=== PATIENT | female | born 1940 | race Caucasian/White ===

== ENCOUNTER 2023-07-29 08:02 | Emergency (ER) | payer OTHER, SELFPAY ==
[2023-07-29 08:10] VITALS: BP 169/92
[2023-07-29 08:25] LABS: % Eosinophils 0.9 % (0-6); % Immature Granulocytes 0.6 % (0-0.5); % Neutrophils 79.5 % (42.2-75.2); Absolute Basophils 0.1 10^3/uL (0-0.2); Absolute Eosinophils 0.1 10^3/uL (0-0.7); Absolute Immature Granulocytes 0.1 10^3/uL (0-0.05); Absolute Lymphocytes 0.8 10^3/uL (1.2-3.4); Absolute Monocytes 0.7 10^3/uL (0.1-0.6); Absolute Neutrophils 6.4 10^3/uL (1.4-6.5); Hematocrit 44.1 % (37.0-47.0); Hemoglobin 15.2 g/dL (12.0-16.0); Mean Corp Hgb Conc. 34.5 g/dL (33.0-37.0); Mean Corpuscular Hgb 29.1 pg (27.0-31.0); Mean Corpuscular Volume 84.5 fL (81.0-99.0); Mean Platelet Volume 9.7 fL (7.4-10.4); Nucleated Red Blood Cells % 0 %; Platelet Count 263 10^3/uL (130-400); Red Blood Cell Count 5.22 10^6/uL (4.20-5.40); Red Cell Dist. Width 14.6 % (11.5-14.5); White Blood Cell Count 8.1 10^3/uL (4.8-10.8)
[2023-07-29 08:38] LABS: ALT (SGPT) 21 U/L (0-35); AST (SGOT) 33 U/L (14-36); Albumin 4.2 g/dl (3.5-5.0); Alkaline Phosphatase 90 U/L (38-126); Blood Urea Nitrogen 11 mg/dl (7-17); Calcium 9.5 mg/dl (8.4-10.2); Carbon Dioxide 26 mmol/L (22-30); Chloride 101 mmol/L (98-107); Glucose 104 mg/dl (70-99); Lipase 100 U/L (23-300); Potassium 4.3 mmol/L (3.5-5.1); Sodium 134 mmol/L (135-145); Total Bilirubin 0.6 mg/dl (0.2-1.3); Total Protein 6.9 g/dl (6.3-8.2); eGFR > 60.00
[2023-07-29 10:00] LABS: Urine Albumin Negative (Neg - Trace); Urine Bilirubin Negative (Negative); Urine Character Clear (Clear); Urine Color Yellow; Urine Glucose Negative (Negative); Urine Ketone Negative (Negative); Urine Leukocyte Trace (Negative); Urine Nitrite Negative (Negative); Urine Occult Blood Negative (Negative); Urine Urobilinogen Negative (Neg - 1+)
--- NOTE | 2023-07-29 10:11 | ED.GENMED ---
History of Present Illness
General
Chief Complaint: Abdominal Pain
Source: patient
Exam Limitations: none
Time Seen by Provider: 07/29/23 10:10
Nursing documentation reviewed up to this point in time: agreed with
Travel History
Have you had any contact with someone who has COVID-19?: No
Do you have any symptoms of coronavirus? Fever > 100 degrees, chills, cough, shortness of breath, sore throat, loss of taste or smell, muscle aches, or headache?: No
History of Present Illness
History of Present Illness:
Patient is a 2-year-old female who presents to the ER for evaluation. Patient reports since she has had pain to the right side of her back that radiates to her right front under her right rib area. She denies any injury. Denies any fever
or chills. Denies any shortness of breath or chest pain. She reports this does not feel like abdominal pain. She denies any associated nausea vomiting diarrhea. She denies any decrease or change of appetite. Food does not make this worse.
noticed rash today to back/front at site of pain.
Past History
Past History
ED Past Medical History: HTN
ED Past Surgical History: Cholecystectomy and Other (Lumpectomy)
Social History
Tobacco: Former smoker
Alcohol: None
Drug: None
Review of Systems
Review of Systems
Allergies reviewed?: Yes
All Other Systems: ROS reviewed and negative except as documented in HPI and ROS
Constitutional: Reports no symptoms; Denies fever, fatigue or chills
Respiratory: Reports other (pain under right rib region ); Denies trouble breathing
Cardiac: Reports no symptoms
ABD/GI: Denies abdominal pain, nausea, vomiting or diarrhea
: Reports no symptoms
Musculoskeletal: Reports back pain (pain to right side of back )
Skin: Reports rash (rash to front/back at site of pain )
Neurological: Denies dizzy, headache, weakness or numbness
Hematologic/Lymphatic: Reports no symptoms
Psychiatric: Reports no symptoms
Phy Exam
General Physical Exam
General Presentation: no apparent distress
General age: appears stated age
General Skin: warm and dry
General Habitus: elderly
General Mental: alert
General Hydration: appears well hydrated
Cardiovascular Exam
Cardiovascular Exam: regular rate/rhythm, no murmur and normal peripheral pulses
Pulmonary Exam
Pulmonary Exam: lungs clear and no respiratory distress
Gastrointestinal Exam
Gastrointestinal Exam: normal bowel sounds, non tender and soft
Neurological Exam
Neurological Exam: alert and oriented x3
[place] Coma Scale
Eye Opening: Spontaneous
Verbal Response: Oriented
Motor Response: Obeys Commands
GCS Total Score: 15
Musculoskeletal Exam
Musculoskeletal Exam: full ROM
Skin Exam
Skin Exam: normal color, warm/dry and other (+ rash (erythema slightly raised/small vesicle )under right anterior rib area and right back along inferior right rib )
Psychiatric Exam
Psychiatric Exam: normal mood/affect
Course
Orders/Labs/Results
Orders:
Orders
07/29/23 08:17
Complete Blood Count/With Diff Urgent
Comprehensive Metabolic Panel Urgent
Lipase Urgent
07/29/23 09:30
Urinalysis Reflex To Culture Urgent
Date Specimen was Collected: 07/29/23
Time Specimen was Collected: 08:13
Urine Microscopic Reflex Cult Urgent
Abnormal Lab Results
07/29/23 07/29/23
08:17 09:30
RDW 14.6 H %
(11.5-14.5)
Abs Immat Gran (auto) 0.1 H 10^3/uL
(0-0.05)
Absolute Lymphs (auto) 0.8 L 10^3/uL
(1.2-3.4)
Absolute Monos (auto) 0.7 H 10^3/uL
(0.1-0.6)
Immature Gran % 0.6 H %
(0-0.5)
Neutrophils % 79.5 H %
(42.2-75.2)
Lymphocytes % 10.0 L %
(20.5-51.1)
Sodium 134 L mmol/L
(135-145)
Glucose 104 H mg/dl
(70-99)
Leukocyte Esterase Rfl Trace A
(Negative)
07/29/23 08:17
07/29/23 08:17
Vital Signs
Initial and Last Documented VS:
Initial Vital Signs
Temp Pulse Resp BP Pulse Ox
98.0 F 69 16 169/92 96
07/29/23 08:10 07/29/23 08:10 07/29/23 08:10 07/29/23 08:10 07/29/23 08:10
Last Documented Vital Signs
Temp Pulse Resp BP Pulse Ox
98.0 F 69 16 169/92 96
07/29/23 08:10 07/29/23 08:10 07/29/23 08:10 07/29/23 08:10 07/29/23 08:10
MDM/Problems Addressed
Differential Diagnosis Includes:
Not limited to muscle pain, shingles
MDM/Problems Addressed:
Symptoms are consistent with shingles. Patient started with discomfort on noticed rash today. Patient is afebrile nontoxic. Abdomen soft nontender normal renal function normal white count. despite rash starting greater than 72
hours patient is greater than 65 years of age will benefit from antiviral treatment. Will start valacyclovir 1000 mg p.o. 3 times a day. In addition we will start gabapentin for discomfort. I did review with patient this is very sedating. She
will be given instructions to start 100 mg every hours as needed but may increase slowly to 300 mg every as needed with outpatient follow-up with family doctor.
*Pulse Oximetry
Patient hypoxic: no
*Critical Care Note
Total Time (30-74mins, 75-104mins- exclusive of procedures): Not Applicable
ED Attending Note
-
Portions of this chart may have been created with voice recognition software.� Occasional wrong word or��sound alike� substitutions may have occurred due to the inherent limitations of voice recognition software.
Discharge Plan
Departure
Patient Disposition: Home (Routine Discharge)
Date of Disposition: 07/29/23
Time of Disposition: 10:32
Patient with high blood pressure during this ER visit?: Yes
Condition: Fair
Covid-19: Not Applicable
Discharge Problem:
Herpes zoster
Instructions: Shingles (DC), BLOOD PRESSURE
Prescriptions:
New
valacyclovir 1 gram tablet
1,000 mg PO TID Qty: 30 0RF
gabapentin 100 mg capsule
100 mg PO Q8H PRN (Reason: pain) Qty: 30 0RF
Rx Instructions:
100 mg PO Q8 hrs PRN may increase to 300mg PO Q8 hrs as needed for Shingles pain
No Action
lisinopril-hydrochlorothiazide 1 EACH tablet
1 ea PO BID
vitamin E 400 UNIT capsule
400 unit PO DAILY
metoprolol tartrate 25 MG tablet
12.5 mg PO BID
FA-B cmp,C-rice bran-edilberto hips [B-complex with vitamin C] 1 EACH tablet
1 tab PO DAILY
selenium 200 MCG capsule
600 mcg PO DAILY
red yeast rice 600 MG tablet
1,200 mg PO DAILY
Co Q-10
2 tab PO DAILY
Patient Comments:
co q 10 -plus strength
amlodipine [Norvasc] 5 MG tablet
5 mg PO DAILY
calcium carbonate [calcium] 500 MG tablet
500 mg PO DAILY
vitamins A,C,T-kyhs-kthsgi [PreserVision AREDS] 1 CAP capsule
2 cap PO DAILY
Referrals:
Cary Farrar MD [Family Provider] -
Activity Restrictions/Additional Instructions:
As discussed your symptoms are consistent with shingles. You have been prescribed 2 medications. 1 medication is an antiviral medication (valacyclovir) take as directed for the next 7-10 days.
the second medication is Gabapentin for shingles pain. This medication will cause drowsiness. You may start by taking 100 mg every 8 hours as needed for discomfort and may increase to 300 mg every 8 hours as needed. Please follow-up with your
family doctor in the next 2 days for reevaluation of symptoms and return if any worsening of symptoms
Interventions
Interventions:
*ED COVID-19 Vaccine History Last Done: 07/29/23 08:10
Discharge Date and Time
Print Language: GHANAIAN
[2023-07-29 10:24] LABS: Urine Bacteria Few (Negative); Urine Red Blood Cell 0-2 /HPF (0-2); Urine Squamous Cell 0-2 /LPF (Few); Urine White Cell 0-2 /HPF (0-5)
== END 2023-07-29 10:47 | disposition home or self-care (01) ==
LOC: EMR 08:02
PROVIDERS: Emergency Medicine; EMERGENCY PHYSICIAN Emergency Medicine; FAMILY PHYSICIAN Family Medicine
DX: B02.9 Zoster without complications (principal); I10 Essential (primary) hypertension; Z87.891 Personal history of nicotine dependence
CPT/HCPCS: 99283; 80053; 81003; 81015; 83690; 85025

== ENCOUNTER → 2023-08-08 09:39 | Outpatient (REF) | payer OTHER, SELFPAY ==
[2023-08-08 12:29] LABS: ALT (SGPT) 20 U/L (0-35); AST (SGOT) 27 U/L (14-36); Albumin 4.1 g/dl (3.5-5.0); Alkaline Phosphatase 90 U/L (38-126); Blood Urea Nitrogen 14 mg/dl (7-17); Calcium 9.4 mg/dl (8.4-10.2); Carbon Dioxide 27 mmol/L (22-30); Chloride 96 mmol/L (98-107); Glucose 92 mg/dl (70-99); HDL Cholesterol 80 mg/dl; LDL Cholesterol, Calculated 120 mg/dl; Potassium 3.9 mmol/L (3.5-5.1); Sodium 134 mmol/L (135-145); Total Bilirubin 0.7 mg/dl (0.2-1.3); Total Cholesterol 222 mg/dl (50-199); Total Protein 6.7 g/dl (6.3-8.2); Triglyceride 110 mg/dl (10-149); Very Low Density Lipoprotein 22 mg/dl (0-30); eGFR > 60.00
== END ==
LOC: REG 09:39
PROVIDERS: ATTENDING PHYSICIAN Family Medicine
DX: I10 Essential (primary) hypertension (principal); E78.00 Pure hypercholesterolemia, unspecified
CPT/HCPCS: 36415; 80053; 80061

== ENCOUNTER 2023-09-10 10:54 | Emergency (ER) | payer OTHER, SELFPAY ==
[2023-09-10 10:56] VITALS: BP 136/84
[2023-09-10 12:42] LABS: % Basophils 0.8 % (0-2); % Eosinophils 1.9 % (0-6); % Immature Granulocytes 0.9 % (0-0.5); % Lymphocytes 11.1 % (20.5-51.1); % Monocytes 11.7 % (1.7-9.3); % Neutrophils 73.6 % (42.2-75.2); Absolute Basophils 0.1 10^3/uL (0-0.2); Absolute Eosinophils 0.2 10^3/uL (0-0.7); Absolute Immature Granulocytes 0.1 10^3/uL (0-0.05); Absolute Neutrophils 6.5 10^3/uL (1.4-6.5); Hematocrit 39.1 % (37.0-47.0); Hemoglobin 13.2 g/dL (12.0-16.0); Mean Corp Hgb Conc. 33.8 g/dL (33.0-37.0); Mean Corpuscular Volume 85.9 fL (81.0-99.0); Mean Platelet Volume 8.8 fL (7.4-10.4); Nucleated Red Blood Cells % 0 %; Platelet Count 305 10^3/uL (130-400); Red Blood Cell Count 4.55 10^6/uL (4.20-5.40); Red Cell Dist. Width 15.9 % (11.5-14.5); White Blood Cell Count 8.8 10^3/uL (4.8-10.8)
[2023-09-10 13:13] LABS: ALT (SGPT) 20 U/L (0-35); AST (SGOT) 31 U/L (14-36); Albumin 3.3 g/dl (3.5-5.0); Alkaline Phosphatase 89 U/L (38-126); Blood Urea Nitrogen 9 mg/dl (7-17); Calcium 9.1 mg/dl (8.4-10.2); Carbon Dioxide 27 mmol/L (22-30); Chloride 101 mmol/L (98-107); Glucose 98 mg/dl (70-99); Lipase 126 U/L (23-300); Potassium 4.3 mmol/L (3.5-5.1); Sodium 134 mmol/L (135-145); Total Bilirubin 0.7 mg/dl (0.2-1.3); eGFR > 60.00
[2023-09-10 13:15] LABS: Troponin I 0.012 ng/ml
[2023-09-10 14:00] VITALS: BP 124/65
--- NOTE | 2023-09-10 14:03 | ED.GENMED ---
History of Present Illness
General
Chief Complaint: Musculo-Skeletal Complaint
Source: patient and spouse
Exam Limitations: none
Time Seen by Provider: 09/10/23 12:12
Nursing documentation reviewed up to this point in time: agreed with
Travel History
Have you had any contact with someone who has COVID-19?: No
Do you have any symptoms of coronavirus? Fever > 100 degrees, chills, cough, shortness of breath, sore throat, loss of taste or smell, muscle aches, or headache?: No
History of Present Illness
History of Present Illness:
83-year-old female with past medical history of hypertension presenting to the emergency department today with concerns of right-sided shoulder discomfort that radiates down to the right hip. She claims this was a similar area to where she had
shingles diagnosed 6 weeks ago she has had pain ongoing since. She saw her primary care doctor for this and they thought it was a postherpetic neuralgia started her on gabapentin. Denies any chest pain shortness of breath nausea vomiting or
additional symptoms.
Past History
Past History
ED Past Medical History: HTN
ED Past Surgical History: Cholecystectomy and Other (Lumpectomy)
Social History
Tobacco: Former smoker
Alcohol: None
Drug: None
Review of Systems
Review of Systems
Allergies reviewed?: Yes
All Other Systems: ROS reviewed and negative except as documented in HPI and ROS
Phy Exam
Physical Exam
Physical Exam:
GENERAL: Alert , in no apparent distress
EYE: pupils equal and reactive
NECK: Supple, no significant adenopathy.
ENT: o/p clr, mmm.
CARDIAC: Regular rate and rhythm .
LUNGS: Clear breath sounds bilaterally, no acute respiratory distress, no wheezes/rales/rhonchi
ABDOMEN: Soft, without focal tenderness, no r/g, no cvat
NEUROLOGICAL: Alert and oriented, no focal neuro deficits
SKIN: No rashes to the right side good range of motion and strength of the right shoulder no reproducible pain warm and dry, skin intact.
MUSCULOSKELETAL: No edema, well perfused.
PSYCH: Normal and appropriate interaction.
Course
Orders/Labs/Results
Orders:
Orders
09/10/23 12:27
Electrocardiogram (*1) Stat
Reason for Study: Other
Other Reason for Exam: chest pain
EKG- Treatment ONCE
CR Chest - 2 Views Urgent
Comment:
Reason For Exam: chest pain
09/10/23 12:33
Complete Blood Count/With Diff Urgent
Comprehensive Metabolic Panel Urgent
Lipase Urgent
Troponin I Urgent
09/10/23 14:03
Ibuprofen [Motrin] 600 mg PO NOW STA
09/10/23 14:41
Ibuprofen [Motrin] 600 mg .ROUTE .STK-MED ONE
Abnormal Lab Results
09/10/23
12:33
RDW 15.9 H %
(11.5-14.5)
Abs Immat Gran (auto) 0.1 H 10^3/uL
(0-0.05)
Absolute Lymphs (auto) 1.0 L 10^3/uL
(1.2-3.4)
Absolute Monos (auto) 1.0 H 10^3/uL
(0.1-0.6)
Immature Gran % 0.9 H %
(0-0.5)
Lymphocytes % 11.1 L %
(20.5-51.1)
Monocytes % 11.7 H %
(1.7-9.3)
Sodium 134 L mmol/L
(135-145)
Total Protein 6.0 L g/dl
(6.3-8.2)
Albumin 3.3 L g/dl
(3.5-5.0)
09/10/23 12:33
09/10/23 12:33
Vital Signs
Initial and Last Documented VS:
Initial Vital Signs
Temp Pulse Resp BP Pulse Ox
98.3 F 79 16 136/84 98
09/10/23 10:56 09/10/23 10:56 09/10/23 10:56 09/10/23 10:56 09/10/23 10:56
Last Documented Vital Signs
Temp Pulse Resp BP Pulse Ox
98.3 F 75 20 124/65 99
09/10/23 10:56 09/10/23 14:00 09/10/23 14:00 09/10/23 14:00 09/10/23 14:00
MDM/Problems Addressed
MDM/Problems Addressed:
83-year-old female presenting to the emergency department today with concerns of right shoulder discomfort rating to the right chest and right flank ongoing for the past 6 weeks after being diagnosed with shingles. On arrival here vital signs are
normal patient well-appearing normal heart and lung examination no reproducible pain throughout. No rashes troponin negative EKG normal chest x-ray without acute findings. Symptoms seem to be most consistent with ongoing postherpetic neuralgia
concerning for the same distribution as previous rash. She was advised close outpatient follow-up for management of this return precautions given.
*Critical Care Note
Total Time (30-74mins, 75-104mins- exclusive of procedures): Not Applicable
ED Attending Note
-
Portions of this chart may have been created with voice recognition software.� Occasional wrong word or��sound alike� substitutions may have occurred due to the inherent limitations of voice recognition software.
Discharge Plan
Departure
Patient Disposition: Home (Routine Discharge)
Date of Disposition: 09/10/23
Time of Disposition: 14:03
Patient with high blood pressure during this ER visit?: No
Condition: Good
Covid-19: Not Applicable
Discharge Problem:
Right shoulder pain
Instructions: Shingles
Prescriptions:
New
naproxen 500 mg tablet
500 mg PO BID Qty: 20 0RF
No Action
lisinopril-hydrochlorothiazide 1 EACH tablet
1 ea PO BID
vitamin E 400 UNIT capsule
400 unit PO DAILY
metoprolol tartrate 25 MG tablet
12.5 mg PO BID
FA-B cmp,C-rice bran-edilberto hips [B-complex with vitamin C] 1 EACH tablet
1 tab PO DAILY
selenium 200 MCG capsule
600 mcg PO DAILY
red yeast rice 600 MG tablet
1,200 mg PO DAILY
Co Q-10
2 tab PO DAILY
Patient Comments:
co q 10 -plus strength
amlodipine [Norvasc] 5 MG tablet
5 mg PO DAILY
calcium carbonate [calcium] 500 MG tablet
500 mg PO DAILY
vitamins A,C,T-rntn-qelbqw [PreserVision AREDS] 1 CAP capsule
2 cap PO DAILY
valacyclovir 1 gram tablet
1,000 mg PO TID Qty: 30 0RF
gabapentin 100 mg capsule
100 mg PO Q8H PRN (Reason: pain) Qty: 30 0RF
Rx Instructions:
100 mg PO Q8 hrs PRN may increase to 300mg PO Q8 hrs as needed for Shingles pain
Referrals:
Michael Bhatti MD [Active] - Follow up in 10 days
Cary Farrar MD [Family Provider] -
Activity Restrictions/Additional Instructions:
You can to the emergency department today with concerns of right-sided discomfort. This may be secondary to your recent shingles infection. Please take the prescribed medication and follow-up closely as an outpatient. Return to the emergency
department for any worsening, new or concerning symptoms
Interventions
Interventions:
*Risk Screen - Suicide Last Done: 09/10/23 12:30
*General Assessment Last Done: 09/10/23 12:30
*Neglect/Abuse Screening Last Done: 09/10/23 12:30
*Nursing Disposition Last Done: 09/10/23 14:52
ED-Musculoskeletal Assessment Last Done: 09/10/23 12:30
Discharge Date and Time
Discharge Date/Time: 09/10/23 14:52
Print Language: TURKISH
[2023-09-10] MEDS: MOTRIN 600 MG PO (14:43)
== END 2023-09-10 14:52 | disposition home or self-care (01) ==
LOC: EMR 10:54
PROVIDERS: Physician Assistant; EMERGENCY PHYSICIAN Emergency Medicine; FAMILY PHYSICIAN Family Medicine
DX: M25.511 Pain in right shoulder (principal); I10 Essential (primary) hypertension; Z87.891 Personal history of nicotine dependence
CPT/HCPCS: 99283; 71046; 80053; 83690; 84484; 85025; 93005

== ENCOUNTER → 2023-09-17 11:02 | Outpatient (REF) | payer OTHER, SELFPAY ==
[2023-09-17 12:02] LABS: % Basophils 1.1 % (0-2); % Eosinophils 2.5 % (0-6); % Immature Granulocytes 1.1 % (0-0.5); % Lymphocytes 13.9 % (20.5-51.1); % Monocytes 10.3 % (1.7-9.3); % Neutrophils 71.1 % (42.2-75.2); Absolute Basophils 0.1 10^3/uL (0-0.2); Absolute Eosinophils 0.2 10^3/uL (0-0.7); Absolute Immature Granulocytes 0.1 10^3/uL (0-0.05); Absolute Lymphocytes 1.1 10^3/uL (1.2-3.4); Absolute Monocytes 0.8 10^3/uL (0.1-0.6); Absolute Neutrophils 5.7 10^3/uL (1.4-6.5); Hematocrit 40.8 % (37.0-47.0); Hemoglobin 13.2 g/dL (12.0-16.0); Mean Corp Hgb Conc. 32.4 g/dL (33.0-37.0); Mean Corpuscular Volume 89.7 fL (81.0-99.0); Mean Platelet Volume 10.2 fL (7.4-10.4); Nucleated Red Blood Cells % 0 %; Platelet Count 318 10^3/uL (130-400); Red Blood Cell Count 4.55 10^6/uL (4.20-5.40); Red Cell Dist. Width 15.8 % (11.5-14.5)
[2023-09-17 12:27] LABS: Erythrocyte Sed Rate 18 mm/hour (0-20)
[2023-09-17 12:46] LABS: C-Reactive Protein < 5.00 mg/L (0.0-10.00)
== END ==
LOC: REG 11:02
PROVIDERS: ATTENDING PHYSICIAN Family Medicine
DX: M54.9 Dorsalgia, unspecified (principal); R10.11 Right upper quadrant pain
CPT/HCPCS: 36415; 72072; 72110; 85025; 85652; 86140; 86618; 86666; 86753

== ENCOUNTER 2024-05-08 09:22 | Emergency (ER) | payer OTHER, SELFPAY ==
[2024-05-08 09:44] VITALS: BP 156/89
[2024-05-08 11:02] VITALS: BMI 17.9
--- NOTE | 2024-05-08 11:49 | ED.GENMED ---
History of Present Illness
General
Chief Complaint: Back Pain
Time Seen by Provider: 05/08/24 11:38
History of Present Illness
History of Present Illness:
TIME OF INITIAL ENCOUNTER: 11:55 AM
HPI: The patient presents with low back pain/tailbone pain. She did fall about a week ago landing on the left side of her buttocks. She did not have initial pain however over the last few days she has been having increasing discomfort primarily in
'my tailbone'. Her drove her here. She denies any other injuries or concerns.
EXAM:
GENERAL: The patient appears generally weak and debilitated and somewhat uncomfortable
HEENT: Moist oral mucosa
BACK: There is no significant thoracolumbar tenderness, however there is mild to moderate tenderness of the sacrococcygeal region
ABDOMEN: Soft with no peritoneal signs, no tenderness
NEUROLOGIC: Good strength all extremities, no coordination deficits
PSYCHIATRIC: Appropriate mental status, normal insight and judgement
EXTREMITIES: Nontender, no edema, moves all extremities equally
SKIN: No rash, no lesions
NUMBER AND COMPLEXITY OF PROBLEMS ADDRESSED AT THE ENCOUNTER
� Chronic conditions affecting care: High blood pressure.
� Acute Exacerbation and/or Progression of Chronic Illness: This is an acute problem
� Differential Diagnosis includes: Pelvis fracture, sacral fracture, coccygeal fracture, lumbar spine fracture, contusion, soft tissue injury
AMOUNT AND/OR COMPLEXITY OF DATA TO BE REVIEWED AND ANALYZED
� I performed an independent evaluation of and my interpretation is:
EKG:
CT:
X-rays: Hip/pelvis x-ray unremarkable, lumbar spine shows degenerative changes
Laboratory Studies:
Other:
� Review of other/old records: I reviewed records, the patient was seen here this past August with shoulder pain
� Clinical information was obtained by an independent historian: I spoke to the daughter and the at bedside
� Prescriptions/Medications Considered but not given:
� Further testing considered but not performed:
RISK OF COMPLICATIONS AND/OR MORBIDITY OR MORTALITY OF PATIENT MANAGEMENT
� Social determinants of health affecting care: Lives at home
� Discussion with other providers: Briefly discussed with radiology
� Escalation of care including admission/observation vs risk of discharge considered: The patient had been taking Tylenol with no improvement. I suggest that she also try intermittent use of NSAID such as ibuprofen as there does
not appear to be any contraindication. Will also give tramadol for a short course but encouraged to take only at bedtime.
ANY OTHER UPDATES:
On reassessment, patient appears fairly comfortable. Will recommend intermittent use of NSAIDs. I have also given contact information for local orthopedist.
Past History
Past History
ED Past Medical History: HTN
ED Past Surgical History: Cholecystectomy and Other (Lumpectomy)
Social History
Tobacco: Former smoker
Alcohol: None
Drug: None
Phy Exam
Physical Exam
Physical Exam:
See HPI
Course
Orders/Labs/Results
Orders:
Orders
05/08/24 09:50
CR Hip - LT w/wo Pel 2-3 Vw* Urgent
Comment:
Reason For Exam: fall with pain
Include a pelvis x-ray?: Yes
Lumbar Spine Complete, 4 View [CR Lumbar Spine Comp Min 4 Vw*] Urgent
Comment:
Reason For Exam: fall with pain
05/08/24 11:58
Tramadol HCl [Ultram] 50 mg PO NOW STA
Vital Signs
Initial and Last Documented VS:
Initial Vital Signs
Temp Pulse Resp BP Pulse Ox
36.4 C 77 18 156/89 95
05/08/24 09:44 05/08/24 09:44 05/08/24 09:44 05/08/24 09:44 05/08/24 09:44
Last Documented Vital Signs
Temp Pulse Resp BP Pulse Ox
36.4 C 77 18 156/89 95
05/08/24 09:44 05/08/24 09:44 05/08/24 09:44 05/08/24 09:44 05/08/24 09:44
*Critical Care Note
Total Time (30-74mins, 75-104mins- exclusive of procedures): Not Applicable
ED Attending Note
-
Portions of this chart may have been created with voice recognition software.� Occasional wrong word or��sound alike� substitutions may have occurred due to the inherent limitations of voice recognition software.
Discharge Plan
Departure
Patient Disposition: Home (Routine Discharge)
Date of Disposition: 05/08/24
Time of Disposition: 12:39
Patient with high blood pressure during this ER visit?: Yes
Discharge Problem:
Coccygeal contusion
Instructions: Contusion
Prescriptions:
New
tramadol 50 mg tablet
50 mg PO Q12H PRN (Reason: pain) Qty: 14 0RF
No Action
lisinopril-hydrochlorothiazide 1 EACH tablet
1 ea PO BID
vitamin E 400 UNIT capsule
400 unit PO DAILY
metoprolol tartrate 25 MG tablet
12.5 mg PO BID
FA-B cmp,C-rice bran-edilberto hips [B-complex with vitamin C] 1 EACH tablet
1 tab PO DAILY
selenium 200 MCG capsule
600 mcg PO DAILY
red yeast rice 600 MG tablet
1,200 mg PO DAILY
Co Q-10
2 tab PO DAILY
Patient Comments:
co q 10 -plus strength
amlodipine [Norvasc] 5 MG tablet
5 mg PO DAILY
calcium carbonate [calcium] 500 MG tablet
500 mg PO DAILY
vitamins A,C,Q-izes-eaxupk [PreserVision AREDS] 1 CAP capsule
2 cap PO DAILY
valacyclovir 1 gram tablet
1,000 mg PO TID Qty: 30 0RF
gabapentin 100 mg capsule
100 mg PO Q8H PRN (Reason: pain) Qty: 30 0RF
Rx Instructions:
100 mg PO Q8 hrs PRN may increase to 300mg PO Q8 hrs as needed for Shingles pain
naproxen 500 mg tablet
500 mg PO BID Qty: 20 0RF
Referrals:
Cary Farrar MD [Family Provider] -
Shay Gamble MD [Active] - Follow up in 2-3 days
Activity Restrictions/Additional Instructions:
I am sending a prescription for Ultram to your pharmacy. Limit the use of this as it has the potential for side effects including confusion. I recommend increasing the MiraLAX to twice a day while taking Ultram to help prevent constipation. I
have given the contact information for local orthopedist if pain persists. Please follow-up with your primary care doctor. I recommend 2-3 [id number]-[id number]-[id number] ibuprofen (Motrin) every 8 hours with food for a few days. Return here if worse.
Interventions
Interventions:
*Risk Screen - Suicide Last Done: 05/08/24 09:44
*General Assessment Last Done: 05/08/24 09:44
*Neglect/Abuse Screening Last Done: 05/08/24 09:44
ED- Fall Risk Assessment Last Done: 05/08/24 11:03
*ED COVID-19 Vaccine History Last Done: 05/08/24 11:02
ED-Musculoskeletal Assessment Last Done: 05/08/24 11:03
Discharge Date and Time
Print Language: AFGHAN
[2024-05-08] MEDS: ULTRAM 50 MG PO (12:07)
== END 2024-05-08 12:56 | disposition home or self-care (01) ==
LOC: EMR 09:22
PROVIDERS: EMERGENCY PHYSICIAN Emergency Medicine; FAMILY PHYSICIAN Family Medicine
DX: S30.0XXA Contusion of lower back and pelvis, initial encounter (principal); W19.XXXA Unspecified fall, initial encounter; I10 Essential (primary) hypertension; Z87.891 Personal history of nicotine dependence; Z90.49 Acquired absence of other specified parts of digestive tract
CPT/HCPCS: 99284; 72110; 73502

== ENCOUNTER → 2024-08-05 08:02 | Outpatient (REF) | payer OTHER, SELFPAY ==
[2024-08-05 09:51] LABS: ALT (SGPT) 21 U/L (0-35); AST (SGOT) 34 U/L (14-36); Albumin 3.9 g/dl (3.5-5.0); Alkaline Phosphatase 88 U/L (38-126); Blood Urea Nitrogen 11 mg/dl (7-17); Calcium 9.8 mg/dl (8.4-10.2); Carbon Dioxide 32 mmol/L (22-30); Chloride 102 mmol/L (98-107); Glucose 91 mg/dl (70-99); HDL Cholesterol 86 mg/dl; LDL Cholesterol, Calculated 117 mg/dl; Potassium 4.5 mmol/L (3.5-5.1); Sodium 138 mmol/L (135-145); Total Bilirubin 0.7 mg/dl (0.2-1.3); Total Cholesterol 220 mg/dl (50-199); Total Protein 6.5 g/dl (6.3-8.2); Triglyceride 89 mg/dl (10-149); Very Low Density Lipoprotein 17 mg/dl (0-30); eGFR > 60.00
== END ==
LOC: REG 08:02
PROVIDERS: ATTENDING PHYSICIAN Family Medicine
DX: I10 Essential (primary) hypertension (principal); E78.00 Pure hypercholesterolemia, unspecified
CPT/HCPCS: 36415; 80053; 80061

== ENCOUNTER → 2025-02-24 09:18 | Outpatient (REF) | payer OTHER, SELFPAY ==
[2025-02-24 10:19] LABS: ALT (SGPT) 20 U/L (0-35); AST (SGOT) 31 U/L (14-36); Albumin 4.0 g/dl (3.5-5.0); Alkaline Phosphatase 76 U/L (38-126); Blood Urea Nitrogen 10 mg/dl (7-17); Calcium 9.5 mg/dl (8.4-10.2); Carbon Dioxide 32 mmol/L (22-30); Chloride 100 mmol/L (98-107); Glucose 85 mg/dl (70-99); HDL Cholesterol 88 mg/dl; LDL Cholesterol, Calculated 111 mg/dl; Potassium 4.6 mmol/L (3.5-5.1); Sodium 134 mmol/L (135-145); Total Protein 6.6 g/dl (6.3-8.2); Very Low Density Lipoprotein 14 mg/dl (0-30); eGFR > 60.00
== END ==
LOC: REG 09:18
PROVIDERS: ATTENDING PHYSICIAN Family Medicine
DX: I10 Essential (primary) hypertension (principal); E78.00 Pure hypercholesterolemia, unspecified
CPT/HCPCS: 36415; 80053; 80061

== ENCOUNTER → 2025-03-15 10:18 | Outpatient (REF) | payer OTHER, SELFPAY | LOC: RCS 10:18 | PROVIDERS: ATTENDING PHYSICIAN Family Medicine; REFERRING PHYSICIAN Student in an Organized Health Care Education/Training Program | DX: R00.0 Tachycardia, unspecified (principal); I48.91 Unspecified atrial fibrillation | CPT/HCPCS: 93225; 93226 ==

== ENCOUNTER → 2025-03-17 10:14 | Outpatient (REF) | payer OTHER, SELFPAY ==
[2025-03-17 11:28] LABS: Sodium 133 mmol/L (135-145)
== END ==
LOC: REG 10:14
PROVIDERS: ATTENDING PHYSICIAN Family Medicine
DX: E87.1 Hypo-osmolality and hyponatremia (principal)
CPT/HCPCS: 36415; 84295

== ENCOUNTER → 2025-03-27 09:49 | Outpatient (REF) | payer OTHER, SELFPAY | LOC: RCS 09:49 | PROVIDERS: ATTENDING PHYSICIAN Family Medicine | DX: R00.0 Tachycardia, unspecified (principal); I48.91 Unspecified atrial fibrillation | CPT/HCPCS: 93005; 93306 ==